=== PATIENT | male | born 1950 | race Caucasian/White ===

== ENCOUNTER 2021-05-11 16:00 | Emergency (ER) | payer OTHER ==
[~2021-05-11] VITALS: Ht 167.6 cm; Wt 72.6 kg
[2021-05-11] MEDS ORDERED: LISINOPRIL10 MG PO (16:26)
[2021-05-11] MEDS ORDERED: VALACYCLOVIR1000 MG PO (16:26)
[2021-05-11] MEDS ORDERED: COREG12.5 MG PO (16:27)
[2021-05-11] MEDS ORDERED: PREDNISOLONE ACE5 M1 OP (16:28)
[2021-05-11] MEDS ORDERED: PROVENTIL HFA6.7 GM INH (16:29)
[2021-05-11] MEDS ORDERED: K-TAB ER20 MEQ PO (20:21)
[2021-05-11] MEDS ORDERED: LASIX20 MG PO (20:21)
== END 2021-05-11 20:40 | disposition home or self-care (01) ==
LOC: ED 16:00
DX: I11.0 Hypertensive heart disease with heart failure (principal); I50.9 Heart failure, unspecified; Z88.5 Allergy status to narcotic agent; Z79.899 Other long term (current) drug therapy; Z79.52 Long term (current) use of systemic steroids
CPT/HCPCS: 71045; 80053; 83880; 84484; 85025; 96374; 99285-25; J1940

== ENCOUNTER 2021-12-12 04:46 | Emergency (ER) | payer MEDICARE, OTHER ==
[~2021-12-12] VITALS: Ht 167.6 cm; Wt 72.6 kg
[~2021-12-12 04:46] MED LIST: COREG12.5 MG PO; K-TAB ER20 MEQ PO; LASIX20 MG PO; LISINOPRIL10 MG PO; PREDNISOLONE ACE5 M1 OP; PROVENTIL HFA6.7 GM INH; VALACYCLOVIR1000 MG PO
--- OUTSIDE RECORDS SUMMARY | 2021-12-12 04:51 | XMS ---
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 [place]ictor[place] VISIT COUNT (12 MO.) 1 [facility] [place] TOTAL 3 NOTE: Visits indicate total known visits. ED/UCC VISIT TRACKING (12 MO.) 12/12/2021 04:47 [facility] [place] TYPE: Emergency COMPLAINT: - LEG SWELLING 11/18/2021 14:50 [facility] [place] TYPE: Emergency DIAGNOSES: - Right lower quadrant pain - GROIN PAIN 05/11/2021 16:01 [facility] [place] TYPE: Emergency COMPLAINT: - DIFFICULTY BREATHING DIAGNOSES: - Other usp (current) drug therapy - Hypertensive heart disease with heart failure - senior care (current) use of systemic steroids - Allergy status to narcotic agent - Shortness of breath - Heart failure, unspecified INPATIENT VISIT TRACKING (12 MO.) No inpatient visits to display in this time frame [email or web address]
[2021-12-12] MEDS ORDERED: CEPHALEXIN500 M1 PO (05:41)
[2021-12-12] MEDS ORDERED: ULTRAM50 MG PO (05:41)
== END 2021-12-12 06:31 | disposition home or self-care (01) ==
LOC: ED 04:46
DX: L03.115 Cellulitis of right lower limb (principal); I11.0 Hypertensive heart disease with heart failure; I50.9 Heart failure, unspecified; J44.9 Chronic obstructive pulmonary disease, unspecified; Z88.8 Allergy status to other drugs, medicaments and biological substances; Z79.899 Other long term (current) drug therapy
CPT/HCPCS: 36415; 80053; 83880; 85025; 93971; 99284-25; A9270